=== PATIENT | female | born 2000 | race Caucasian/White ===

== ENCOUNTER 2020-04-08 20:19 | Emergency (ER) | payer OTHER ==
[2020-04-08 20:30] VITALS: BP 122/80; PULSE 85; TEMP 98.1; BMI 23.6
--- NOTE | 2020-04-08 21:35 | PDOC ---
Documentation entered by Meet Bobo SCRIBE, acting as scribe for Meggan Colon MD. Meggan Colon MD: This documentation has been prepared by the Jihan engel Angel, SCRIBE, under my direction and personally reviewed by me in its entirety. I confirm that the documentation accurately reflects all work, treatment, procedures, and medical decision making performed by me. History of Present Illness - General Chief Complaint: Palpitations Stated Complaint: PALPITATIONS History Source: Patient Exam Limitations: No Limitations - History of Present Illness Initial Comments: 04/08/20 21:12 The patient is a 19 year old female with no significant past medical history who presents to the ED with palpitations. The patient states about a month ago she went to see her doctor because she was experiencing episodes of heart flutters which caused her to have trouble sleeping. Today during one of her online classes she began feeling chest pain which made her dizzy and uncomfortable. The patient states for a few minutes her heart rate was in the 120s to 130s before returning back to normal. The patient notes still feeling dizzy here in the ED but otherwise has no further complaints. 04/08/20 21:33 Assessment and plan: This is a 19-year-old female who comes in with her father for evaluation of palpitations. Patient has had palpitations on and off for the last several weeks. Patient saw her primary care doctor and was told that everything was fine however she continues to have palpitations so came in for evaluation. Patient here had a normal exam I did a cardiogram that showed normal sinus rhythm no acute ST-T wave changes essentially normal cardiogram I recommended that patient follow-up with her cane loader and get a Holter monitor and patient was discharged home with her father Past History - Medical History Allergies/Adverse Reactions: Allergies Allergy/AdvReac Type Severity Reaction Status Date / Time No Known Allergies Allergy Unverified 04/08/20 20:24 Home Medications: Ambulatory Orders NK [No Known Home Medication] 04/08/20 COPD: No - Immunization History Immunization Up to Date: Yes - Psycho-Social/Smoking History Smoking History: Never smoked Review of Systems - Review of Systems Able to Perform ROS?: Yes Comments:: 04/08/20 21:13 General: No fevers or chills, no weakness, no weight loss HEENT: No change in vision. No sore throat. No ear pain CardioVascular: +Chest pain. No shortness of breath Respiratory:No cough, or wheezing. Gastrointestinal: no nausea, vomiting, diarrhea or constipation, No rectal bleeding Genitourinary: No dysuria, hematuria, or frequency Musculoskeletal: No joint or muscle pain or swelling Neurologic: + Dizziness. No headache, vertigo or loss of consciousness Psychiatric: nor depression Skin: No rashes or easy bruising Endocrine: no increased thirst or abnormal weight change Allergic: no skin or latex allergy All other systems reviewed and normal *Physical Exam - Vital Signs Last Vital Signs Temp Pulse Resp BP Pulse Ox 98.1 F 85 18 122/80 100 04/08/20 20:24 04/08/20 20:24 04/08/20 20:24 04/08/20 20:24 04/08/20 20:24 - Physical Exam 04/08/20 21:15 General: Well-nourished well-developed individual, no acute distress HEENT: Throat: Normal, tonsils normal, no erythema or exudate Neck: Supple, no meningeal signs, no lymphadenopathy Eyes::Pupils equal reactive and round, extraocular motion intact Chest: Nontender to palpation Cardiac: S1-S2 normal, regular rate and rhythm, no murmurs rubs or gallops Respiratory: Lungs clear to auscultation bilateral Extremities: Warm, dry, no cyanosis, clubbing, or edema Skin: No rashes Neuro: Alert and oriented x3, nonfocal exam, grossly intact, normal gait Psych: Normal mood and affect Discharge - Discharge Information Problems reviewed: Yes Clinical Impression/Diagnosis: Palpitations with regular cardiac rhythm Condition: Stable Disposition: HOME - Admission No - Follow up/Referral - Patient Discharge Instructions Additional Instructions: It is important that you follow-up with a cane loader to rule out any additional causes for your palpitations. Return to the emergency department immediately with ANY new, persistent or worsening symptoms. Continue any medications as previously prescribed by your physician. You should follow up with your primary doctor as soon as possible regarding today's emergency department visit. . Please make sure your doctor reviews the results of your emergency evaluation. Thank you for coming to the Emergency Department today for your care. It was a pleasure to see you today. Please note that your evaluation is INCOMPLETE until you follow-up with your doctor. - Post Discharge Activity
--- NOTE | 2020-04-09 10:19 | EKG ---
Test Reason : Blood Pressure : / mmHG Vent. Rate : 069 BPM Atrial Rate : 069 BPM P-R Int : 142 ms QRS Dur : 092 ms QT Int : 410 ms P-R-T Axes : 070 067 045 degrees QTc Int : 439 ms NORMAL SINUS RHYTHM POSSIBLE LEFT ATRIAL ENLARGEMENT NO PREVIOUS ECGS AVAILABLE Confirmed by FOREST GONZALEZ MD ([id number]) on 04/09/2020 10:19:43 AM Referred By: DR PALMER Confirmed By:FOREST GONZALEZ MD
== END 2020-04-08 21:40 | disposition home or self-care (01) ==
LOC: FER 20:19
DX: R00.2 Palpitations (principal)
CPT/HCPCS: 93005; 99283-25